=== PATIENT | male | born 1995 | race African-American/Black ===

== ENCOUNTER 2024-10-17 16:45 | Emergency (ER) | payer OTHER ==
[2024-10-17] MEDS ORDERED: Magnesium 2 GM/50 ML BAG (IN WATER) ONE (17:24)
[2024-10-17] MEDS ORDERED: methylPREDNISolone Sod Succ/PF 125 MG/2 ML VIAL ONE (17:24)
[2024-10-17] MEDS ORDERED: Ipratropium/Albuterol 3 ML NEB ONE (17:28)
[2024-10-17] MEDS ORDERED: Albuterol 2.5 MG (3 mL) NEB ONE ×2 (17:28→17:40)
== END 2024-10-17 19:10 | disposition home or self-care (01) ==
LOC: CSHERS 16:45
DX: J45.901 Unspecified asthma with (acute) exacerbation (principal); J11.1 Influenza due to unidentified influenza virus with other respiratory manifestations; F17.290 Nicotine dependence, other tobacco product, uncomplicated
CPT/HCPCS: 87428; 94640; 96374; 96375; J2919; J3475; J7611; J7620

== ENCOUNTER 2024-11-23 12:25 | Emergency (ER) | payer OTHER ==
[2024-11-23] MEDS ORDERED: Albuterol 2.5 MG (3 mL) NEB ONE (14:35)
[2024-11-23] MEDS ORDERED: methylPREDNISolone Sod Succ/PF 125 MG/2 ML VIAL ONE (14:51)
[2024-11-23 15:19] LABS: #Basophils Less than 0.03 10x3/uL (0.0-0.2); #Eosinophils 0.78 10x3/uL (0.0-0.5); #Monocytes 0.59 10x3/uL (0.0-1.1); #Neutrophils 5.85 10x3/uL (1.5-8.4); %Basophils 0.1 % (0.0-2.0); %Eosinophils 8.1 % (0.0-6.0); %Lymphocytes 24.3 % (18.0-47.0); %Monocytes 6.1 % (0.0-10.0); Hematocrit 41.5 % (38.8-50.0); Hemoglobin 14.2 g/dL (13.5-17.5); Mean Corpuscular HGB CONC 34.2 g/dL (32.0-36.0); Mean Corpuscular Hemoglobin 32.2 pg (27.0-33.0); Mean Corpuscular Volume 94.1 fL (81.2-95.1); Platelet Count 248 10x3/uL (150-450); RBC Distribution Width 12.3 % (11.5-14.5); Red Blood Cell (RBC) Count 4.41 10x6/uL (4.32-5.72); White Blood Cell (WBC) Count 9.61 10x3/uL (3.5-10.5)
[2024-11-23 15:40] LABS: ALT (SGPT) 19 U/L (Less than 45); AST (SGOT) 19 U/L (11-34); Albumin 4.4 g/dL (3.1-4.5); Alkaline Phosphatase 59 U/L (40-110); Anion Gap 13 mmol/L (10-20); BUN (Urea Nitrogen) 9 mg/dL (8.9-20.6); Bilirubin, Total 0.4 mg/dL (0.3-1.2); Calc. Creatinine Clearance 0 mL/min (70-130); Calcium 9.7 mg/dL (7.8-10.44); Carbon Dioxide 25 mmol/L (22-29); Chloride 105 mmol/L (98-107); Estimated GFR 89; Globulin 3.1 g/dL (2.4-3.5); Glucose 90 mg/dL (70-105); Lipase 6 U/L (8-78); Potassium 4.2 mmol/L (3.5-5.1); Protein, Total 7.5 g/dL (6.0-8.3); Sodium 139 mmol/L (136-145)
== END 2024-11-23 16:30 | disposition home or self-care (01) ==
LOC: CSHERS 12:25
DX: J45.901 Unspecified asthma with (acute) exacerbation (principal); F17.290 Nicotine dependence, other tobacco product, uncomplicated
CPT/HCPCS: 71045; 80053; 83690; 85025; 87428; 94640; 96374; J2919; J7611